=== PATIENT | female | born 1945 | race Caucasian/White ===

== ENCOUNTER 2023-03-24 11:31 | Emergency (ER) | payer BC ==
[~2023-03-24] VITALS: Ht 167.6 cm; Wt 74.0 kg
[2023-03-24 11:50] VITALS: BP 195/109; PULSE 92; RESP 20; TEMP 98.3; O2SAT 100
== END 2023-03-24 15:50 | disposition left against medical advice (07) ==
LOC: ER 11:50
DX: Z53.21 Procedure and treatment not carried out due to patient leaving prior to being seen by health care provider (principal)
CPT/HCPCS: 99281